=== PATIENT | male | born 1950 ===

== ENCOUNTER 2023-11-03 07:10 | Outpatient (REF) | payer MEDICARE, BC, OTHER, SELFPAY ==
--- NOTE | ~2023-11-03 | XR_ITS ---
EXAMINATION: XR KNEE, LEFT CLINICAL INFORMATION: Pain. COMPARISON: None available. TECHNIQUE: AP, lateral and sunrise views of the left knee are submitted. FINDINGS: Bony alignment and mineralization is normal. There is marked asymmetric narrowing of the medial joint space compartment. The lateral and patellofemoral compartments are well-maintained. There is slight peripheral osteophyte formation of the articular surface of the patella. There is no significant varus or valgus configuration. A small joint effusion is seen. There is no foreign body. XR/XR knee LT 3V IMPRESSION: 1. There is marked osteoarthritic change of the medial joint space compartment of the left knee, and mild osteoarthritic change is seen of the patellofemoral compartment. 2. There is a small left knee joint effusion.
== END 2023-11-03 07:11 | disposition home or self-care (01) ==
LOC: HO.HOSX 07:10
PROVIDERS: Visit Provider Orthopaedic Surgery
DX: M17.12 Unilateral primary osteoarthritis, left knee (principal)
CPT/HCPCS: 73562; 99202

== ENCOUNTER 2023-11-03 08:03 | Outpatient (AMB) | payer MEDICARE, OTHER, SELFPAY ==
--- NOTE | 2023-11-03 08:04 | A.OFFVIS_ITS ---
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 Patient reports his pain has been going on for about 55 years and is a 9 on the 1-10 pain scale. He denies surgery,injections, ibuprofen and Tylenol. He states he uses ice when it swells. The patient states that he has been an avid runner. He has not been able to run because of his pain. He would like to hold off on total knee replacement surgery for as long as possible. Allergies No Known Allergies Allergy (Verified 11/03/23 08:09) Medication List - Last Reconciled 11/03/23 by Serg Leonardo MD No Known Home Meds [facility] Surgical History (Updated 11/03/23 @ 08:20 by Judi Toledo CMA) Hx of prior ablation treatment (Unknown) Hx of inguinal hernia surgery (Unknown) History of prostate surgery (Unknown) Social History (Updated 11/03/23 @ 08:11 by Judi Toledo CMA) Patient Tobacco Use Status: Never used Tobacco Physical Exam Vital Signs: BMI result Body Mass Index 25.7 Const Other: Well-nourished well-developed very friendly male awake alert and oriented x3 in no acute distress Extrem Other: Bilateral lower extremity examination shows good capillary refill, no skin lesions noted, normal sensation light touch Left knee examination shows a minimal effusion, palpable crepitus with range of motion, pain with range of motion, range of motion from -3 degrees to 120 degrees, Results Reviewed Results Reviewed: X-rays of the patient's left knee show severe joint space narrowing most significant in the medial compartment, no acute bony abnormalities Assessment & Plan Assessment & Plan (1) Arthritis of left knee: Code(s): M17.12 - Unilateral primary osteoarthritis, left knee Plan Mr. Andre presents with left knee pain due to degenerative joint disease. I had a lengthy discussion with the patient regarding the treatment options. He wishes to hold off on total knee replacement surgery for as long as possible. I agree with this plan. We also discussed the risks and benefits of injection therapy. The patient is not interested in a cortisone injection. He is considering viscosupplementation injections. He will contact my office if he chooses to proceed. At that time we will see whether not his insurance company will cover a viscosupplementation injection for his left knee. Otherwise he will follow up on an as-needed basis. I spent 22 minutes in reviewing the patient's records and imaging studies, seeing the patient and documenting in the medical record. Orders: Orders XR knee LT 3V Today M25.562 - Pain in left knee Coding Level of Care Code New Pt Level 2 (62935) Diagnoses Arthritis of left knee M17.12
[2023-11-03 08:06] VITALS: BMI 25.7
== END 2023-11-03 08:52 | disposition home or self-care (01) ==
PROVIDERS: Visit Provider Orthopaedic Surgery
DX: M17.12 Unilateral primary osteoarthritis, left knee (principal)
CPT/HCPCS: 99202